=== PATIENT | female | born 1980 | race Caucasian/White ===

== ENCOUNTER 2022-11-09 13:04 | Outpatient (CLI) | payer OTHER, SELFPAY ==
--- NOTE | 2022-11-09 13:00 | CRLHL7_ITS ---
For Patients: As a result of the Century Cures Act, medical imaging exams and procedure reports are released immediately into your electronic medical record. You may view this report before your referring provider. If you have questions, please contact your health care provider. BILATERAL SCREENING MAMMOGRAM WITH COMPUTER-AIDED DETECTION AND TOMOSYNTHESIS TECHNIQUE: CC, MLO and Implant displaced views were obtained. These mammographic images have been obtained using full-field digital technique. These mammographic images were interpreted with the benefit of computer-aided detection. Breast Tomosynthesis was used in this interpretation. COMPARISON FILM: 07/29/19. FINDINGS: The breasts are heterogeneously dense, which may obscure small masses IMPRESSION: There is no radiographic evidence for malignancy. ASSESSMENT: BI-RADS Category 2: Benign RECOMMENDATION: Routine screening mammogram in 1 year. A lay language report of this examination will be provided to the patient. Brayden Willson M.D. Diagnostic Radiologist [email or web address] ISATU/Dictated by: Brayden Willson MD @ 11/10/2022 9:30:00 AM (Electronically Signed)
== END 2022-11-09 13:05 | disposition home or self-care (01) ==
LOC: MAMMO 13:09
PROVIDERS: PCP Nurse Practitioner Family; Visit Provider Family Medicine
DX: Z12.31 Encounter for screening mammogram for malignant neoplasm of breast (principal); R92.2 Inconclusive mammogram
CPT/HCPCS: 77063; 77067

== ENCOUNTER 2023-11-12 13:11 | Outpatient (CLI) | payer OTHER, SELFPAY ==
--- NOTE | 2023-11-12 13:00 | MM_ITS ---
Patient: BIANCA SERRATO Facility:?[facility] Patient ID:?[id number] Site Patient ID:?[id number]. Site :?[id number] Study:?XRay-Breast Bilateral 3D W/CAD-11/12/2023 2:19:16 PM Ordering Physician:Vel Rodriguez Final Report: BILATERAL SCREENING MAMMOGRAM WITH COMPUTER-AIDED DETECTION AND TOMOSYNTHESIS TECHNIQUE: CC and MLO views were obtained. These mammographic images have been obtained using full-field digital technique. These mammographic images were interpreted with the benefit of computer-aided detection. Breast Tomosynthesis was used in this interpretation. COMPARISON FILM: 11/09/22, 07/29/19. FINDINGS: The breasts are extremely dense, which lowers the sensitivity of mammography IMPRESSION: There is no radiographic evidence for malignancy. ASSESSMENT: BI-RADS Category 2: Benign RECOMMENDATION: Routine screening mammogram in 1 year. A lay language report of this examination will be provided to the patient. Brayden Willson M.D. Diagnostic Radiologist [email or web address] MARILY/elis Transcribed: 12:40 p.mSandy gillis/Dictated by: Brayden Willson MD @ 11/13/2023 10:12:00 AM Signed by:?Brayden Willson MD @11/13/2023 1:51:10 PM (Electronic Signature)
== END 2023-11-12 13:12 | disposition home or self-care (01) ==
LOC: MAMMO 13:13
PROVIDERS: PCP Family Medicine; Visit Provider Family Medicine
DX: Z12.31 Encounter for screening mammogram for malignant neoplasm of breast (principal); R92.2 Inconclusive mammogram
CPT/HCPCS: 77063; 77067

== ENCOUNTER 2024-12-22 13:06 | Outpatient (CLI) | payer OTHER, SELFPAY ==
--- NOTE | 2024-12-22 13:00 | CRLHL7_ITS ---
For Patients: As a result of the Century Cures Act, medical imaging exams and procedure reports are released immediately into your electronic medical record. You may view this report before your referring provider. If you have questions, please contact your health care provider. INDICATION: BILATERAL SCREENING MAMMOGRAM W/IMPLANTS, ASYMPTOMATIC 44 Y/O FEMALE COMPARISON: 11/12/2023, 11/09/2022, 07/29/2019 TECHNIQUE: Digital mammogram in CC and MLO projections including computer-aided detection (CAD) and tomosynthesis. BREAST COMPOSITION: The breasts are heterogeneously dense, which may obscure small masses. FINDINGS: No suspicious findings. ASSESSMENT: BI-RADS 2 Benign RECOMMENDATION: Annual screening mammogram. A lay language report of this examination will be provided to the patient. Dictated by: Brayden Willson MD @ 12/23/2024 11:29:00 (Electronically Signed)
== END 2024-12-22 13:07 | disposition home or self-care (01) ==
LOC: MAMMO 13:06
PROVIDERS: PCP Family Medicine; Visit Provider Nurse Practitioner Family
DX: Z12.31 Encounter for screening mammogram for malignant neoplasm of breast (principal); R92.333 Mammographic heterogeneous density, bilateral breasts; Z98.82 Breast implant status
CPT/HCPCS: 77063; 77067